=== PATIENT | female | born 1970 | race Two or more races ===

== ENCOUNTER 2022-11-14 13:18 | Emergency (ER) | payer OTHER ==
[~2022-11-14] VITALS: Ht 162.6 cm; Wt 67.1 kg
[2022-11-14] MEDS ORDERED: MUPIROCIN15 GM TOP (21:04)
[2022-11-14] MEDS ORDERED: DUI500 PO (21:04)
== END 2022-11-14 21:16 | disposition home or self-care (01) ==
LOC: ER 13:18
DX: R10.2 Pelvic and perineal pain (principal); N20.0 Calculus of kidney; D25.9 Leiomyoma of uterus, unspecified